=== PATIENT | female | born 1995 | race African-American/Black ===

== ENCOUNTER 2022-05-22 21:33 | Observation (INO) | payer MEDICARE ==
[~2022-05-22] VITALS: Ht 162.6 cm; Wt 96.6 kg
[2022-05-22 22:36] LABS: CLARITY URINE CLOUDY (CLEAR); COLOR URINE YELLOW (YELLOW); KETONES URINE TRACE (NEGATIVE); LEUKOCYTE ESTERASE URINE 2+ (NEGATIVE); NITRITE URINE NEGATIVE (NEGATIVE); OCCULT BLOOD URINE NEGATIVE (NEGATIVE); PROTEIN URINE 1+ (NEGATIVE); SPECIFIC GRAVITY URINE 1.032 (1.005-1.030)
[2022-05-22] MEDS ORDERED: LACTATED RINGERS 1,000 ML IV SCH (23:15)
[2022-05-22] MEDS ORDERED: CEFAZOLIN 2,000 MG in DEXT 5% WATER 100 ML IV NR (23:15)
[2022-05-22] MEDS ORDERED: PNV1TABL50 PO (23:30)
[2022-05-22] MEDS ORDERED: PNV1TABL50 MT (23:30)
== END 2022-05-22 23:52 | disposition home or self-care (01) ==
LOC: 8 EST LDRP 21:33
PROVIDERS: ADMIT Obstetrics & Gynecology; ATTEND Obstetrics & Gynecology
DX: O99.891 Other specified diseases and conditions complicating pregnancy (principal); M54.9 Dorsalgia, unspecified; R10.30 Lower abdominal pain, unspecified; Z3A.31 31 weeks gestation of pregnancy
CPT/HCPCS: 59025; 81003; 96360; 96365; 96372; 99281; G0378; J0690; J7060

== ENCOUNTER 2022-07-17 10:24 | Inpatient (IN) | payer MEDICARE ==
[~2022-07-17] VITALS: Ht 162.6 cm; Wt 101.6 kg
[~2022-07-17 10:24] MED LIST: PNV1TABL50 MT; PNV1TABL50 PO
[2022-07-17] MEDS ORDERED: LACTATED RINGERS 1,000 ML IV SCH (11:15)
[2022-07-17] MEDS ORDERED: MISOPROSTOL 100MCG TABLET VG SCH (11:15)
[2022-07-17] MEDS ORDERED: NALOXONE HCL 0.4 MG/ML 1ML VIAL IM PRN (11:15)
[2022-07-17] MEDS ORDERED: LIDOCAINE HCL 1% 10 MG/ML 10ML VIAL IJ SCH (11:15)
[2022-07-17] MEDS ORDERED: BUTORPHANOL TARTRATE 2 MG/ML VIAL IV PRN (11:15)
[2022-07-17] MEDS ORDERED: PENICILLIN G POTASSIUM 5 MMU in DEXT 5% WATER 100 ML IV NR (12:30)
[2022-07-17 12:39] LABS: BASOPHILS % 0.7 % (0.0-2.0); EOSINOPHILS % 0.7 % (0.0-5.0); HEMATOCRIT. 28.8 % (36.0-48.0); HEMOGLOBIN. 8.8 g/dL (12.0-16.0); LYMPHOCYTES % 18.9 % (20.0-50.0); MEAN CORPUSCULAR HEMOGLOBIN 19.6 pg (28.0-32.0); MEAN CORPUSCULAR VOLUME 64.2 fL (81.0-99.0); MEAN PLATELET VOLUME 7.8 fl (7.4-10.4); MONOCYTES % 8.9 % (2.0-8.0); NEUTROPHILS % 70.8 % (40.0-76.0); PLATELET 370 x1000/uL (130-400); RED BLOOD CELL COUNT 4.49 mill/uL (4.2-5.4); RED CELL DISTRIBUTION WIDTH 18.9 % (11.6-14.6)
[2022-07-17 12:46] LABS: INR 0.9; PARTIAL THROMBOPLASTIN TIME 27.1 sec (23.4-31.0); PROTHROMBIN TIME 9.8 sec (9.6-11.0)
[2022-07-17 13:13] LABS: PLATELET ESTIMATE NORMAL
[2022-07-17 13:49] LABS: HEPATITIS B SURFACE ANTIGEN NEGATIVE
[2022-07-17] MEDS: OXYTOCIN 30 UNITS/500ML NS PMX 500 ML IV SCH ×2 (14:02→15:55)
[2022-07-17 14:47] LABS: D-DIMER 1.26 mg/L FEU (<0.50)
[2022-07-17 14:52] LABS: CHLORIDE 109 mEq/L (98-107)
[2022-07-17] MEDS ORDERED: IBUPROFEN 400MG TABLET PO PRN (15:00)
[2022-07-17] MEDS ORDERED: BENZOCAINE/LANOLIN/ALOE VERA SPRAY TOP PRN (15:00)
[2022-07-17] MEDS ORDERED: RHO(D) IMMUNE GLOBULIN 300 MCG/SYR IM PRN (15:00)
[2022-07-17] MEDS ORDERED: DIPHENHYDRAMINE 25MG CAPSULE PO PRN (15:00)
[2022-07-17] MEDS ORDERED: OXYTOCIN 30 UNITS/500ML NS PMX 500 ML IV SCH (15:00)
[2022-07-17] MEDS ORDERED: ACETAMINOPHEN WITH CODEINE 300/30MG TABLET PO PRN (15:00)
[2022-07-17] MEDS ORDERED: LANOLIN OINT 7GM TUBE TOP PRN (15:00)
[2022-07-17] MEDS ORDERED: HEMORRHOIDAL SUPP PR PRN (15:00)
[2022-07-17] MEDS ORDERED: BISACODYL 10MG SUPP PR PRN (15:00)
[2022-07-17] MEDS ORDERED: GLYCERIN/WITCH HAZEL LEAF MEDICATED PAD TOP PRN (15:00)
[2022-07-17] MEDS ORDERED: NALOXONE HCL 0.4MG/ML VIAL IV PRN (15:15)
[2022-07-17 16:00] VITALS: BP 131/56
[2022-07-17] MEDS ORDERED: PENICILLIN G POTASSIUM 2.5 MMU in DEXTROSE 5% WATER 50 ML IV SCH (16:30)
[2022-07-17 17:00] VITALS: BP 130/60
[2022-07-17] MEDS: MAGNESIUM/ALUMINUM HYDROXIDE/SIMETHICONE 30ML UDC PO SCH (17:30)
[2022-07-17] MEDS: SIMETHICONE 80MG TABLET CHEW PO SCH (17:52)
[2022-07-17 20:00] VITALS: BP 129/69
[2022-07-17] MEDS ORDERED: DOCUSATE SODIUM 100MG CAPSULE PO SCH (21:00)
[2022-07-17] MEDS: IBUPROFEN 800MG TABLET PO PRN (21:41)
[2022-07-18] MEDS: IBUPROFEN 800MG TABLET PO PRN ×3 (03:57→20:39)
[2022-07-18 04:00] VITALS: BP 116/57
[2022-07-18 07:05] LABS: BASOPHILS % 0.3 % (0.0-2.0); EOSINOPHILS % 0.9 % (0.0-5.0); HEMATOCRIT. 22.4 % (36.0-48.0); LYMPHOCYTES % 19.4 % (20.0-50.0); MEAN CORPUSCULAR HEMOGLOBIN 19.6 pg (28.0-32.0); MEAN CORPUSCULAR VOLUME 65.5 fL (81.0-99.0); MEAN PLATELET VOLUME 8.3 fl (7.4-10.4); MONOCYTES % 10.6 % (2.0-8.0); NEUTROPHILS % 68.8 % (40.0-76.0); PLATELET 276 x1000/uL (130-400); RED BLOOD CELL COUNT 3.41 mill/uL (4.2-5.4); RED CELL DISTRIBUTION WIDTH 19.4 % (11.6-14.6)
[2022-07-18 07:57] LABS: HEMOGLOBIN. 6.7 g/dL (12.0-16.0)
[2022-07-18 08:00] VITALS: BP 124/56
[2022-07-18] MEDS: MAGNESIUM/ALUMINUM HYDROXIDE/SIMETHICONE 30ML UDC PO SCH ×2 (08:44→15:11)
[2022-07-18] MEDS: PRENATAL VIT/FE FUMARATE/FA TABLET PO SCH (08:44)
[2022-07-18] MEDS: FERROUS SULFATE 325MG TABLET PO SCH ×2 (08:45→15:11)
[2022-07-18] MEDS: SIMETHICONE 80MG TABLET CHEW PO SCH ×2 (08:45→15:11)
[2022-07-18 16:00] VITALS: BP 128/62
[2022-07-18 20:00] VITALS: BP 125/71
[2022-07-19] MEDS: IBUPROFEN 800MG TABLET PO PRN ×2 (02:49→09:11)
[2022-07-19 03:30] VITALS: BP 120/83
[2022-07-19 08:30] VITALS: BP 132/60
[2022-07-19] MEDS: FERROUS SULFATE 325MG TABLET PO SCH (09:11)
[2022-07-19] MEDS: MAGNESIUM/ALUMINUM HYDROXIDE/SIMETHICONE 30ML UDC PO SCH (09:11)
[2022-07-19] MEDS: PRENATAL VIT/FE FUMARATE/FA TABLET PO SCH (09:11)
[2022-07-19] MEDS: SIMETHICONE 80MG TABLET CHEW PO SCH (09:12)
== END 2022-07-19 11:05 | disposition home or self-care (01) | DRG 560 ==
LOC: 8 EST LDRP 10:24 → OBSVTOIN 11:33 → 8EST 16:53
PROVIDERS: ADMIT Obstetrics & Gynecology; ATTEND Obstetrics & Gynecology
PROC: 10E0XZZ Delivery of Products of Conception, External Approach (ICD-10-PCS; principal; 2022-07-17)
PROC: 3E0R3BZ Introduction of Anesthetic Agent into Spinal Canal, Percutaneous Approach (ICD-10-PCS; 2022-07-17)
PROC: 00HU33Z Insertion of Infusion Device into Spinal Canal, Percutaneous Approach (ICD-10-PCS; 2022-07-17)
DX: O99.02 Anemia complicating childbirth (principal); Z37.0 Single live birth; Z20.822 Contact with and (suspected) exposure to COVID-19; Z3A.39 39 weeks gestation of pregnancy
CPT/HCPCS: 36415; 80053; 84550; 85025; 85379; 85384; 86592; 86703; 86762; 86850; 86900; 87340; 87426; 99281; G0378; J0595; J2540; J3490; J7060; J7120; J2590

== ENCOUNTER 2024-10-27 12:53 | Emergency (ER) | payer MEDICAID, MEDICARE ==
[~2024-10-27] VITALS: Ht 167.6 cm; Wt 91.0 kg
[2024-10-27 12:55] VITALS: PULSE 95; RESP 14; O2SAT 100
[2024-10-27 13:05] VITALS: BP 137/87; TEMP 36.5; O2SAT 97
[2024-10-27 14:01] LABS: BASOPHILS % 0.6 % (0.0-2.0); DIFFERENTIAL COMMENT 0; EOSINOPHILS % 2.1 % (0.0-5.0); HEMATOCRIT. 41.1 % (36.0-48.0); HEMOGLOBIN. 13.3 g/dL (12.0-16.0); LYMPHOCYTES % 23.6 % (20.0-50.0); MEAN CORPUSCULAR HEMOGLOBIN 25.9 pg (28.0-32.0); MEAN CORPUSCULAR HGB CONC 32.4 g/dL (31.0-37.0); MEAN CORPUSCULAR VOLUME 79.9 fL (81.0-99.0); MEAN PLATELET VOLUME 7.7 fl (7.4-10.4); MONOCYTES % 6.4 % (2.0-8.0); NEUTROPHILS % 67.3 % (40.0-76.0); PLATELET 368 x1000/uL (130-400); RED BLOOD CELL COUNT 5.15 mill/uL (4.2-5.4); RED CELL DISTRIBUTION WIDTH 15.7 % (11.6-14.6); WHITE BLOOD COUNT 12.1 x1000/uL (4.5-11.0)
[2024-10-27 14:11] LABS: CHLORIDE 102 mEq/L (98-107); POTASSIUM 4.5 mEq/L (3.5-5.1); SODIUM 140 mEq/L (136-145)
[2024-10-27 14:12] LABS: CARBON DIOXIDE 32 mEq/L (21-32)
[2024-10-27 14:13] LABS: CALCIUM 10.7 mg/dL (8.7-10.4)
[2024-10-27 14:17] LABS: CREATININE 0.9 mg/dL (0.6-1.0); GLUCOSE 110 mg/dL (70-105); UREA NITROGEN BLOOD 14 mg/dL (9-23)
[2024-10-27 15:48] LABS: HCG SCREEN NEGATIVE
[2024-10-27 15:57] LABS: TROPONIN I HIGH SENSITIVITY < 4 ng/L (3.0-34)
== END 2024-10-27 16:51 | disposition home or self-care (01) ==
LOC: ER 12:53
DX: R55 Syncope and collapse (principal); F41.9 Anxiety disorder, unspecified
CPT/HCPCS: 36415; 71045; 80048; 81025; 84484; 84703; 85025; 93005; 99285